=== PATIENT | female | born 1985 | race African-American/Black ===

== ENCOUNTER 2019-04-13 15:02 | Inpatient (IN) ==
[2019-04-13] MEDS ORDERED: PENICILLIN G POTASSIUM 6 MU in DEXTROSE 5% 250 ML IV STA (22:54)
[2019-04-13] MEDS ORDERED: miSOPROStol 50 MCG TAB PO ONE (22:54)
[2019-04-13] MEDS ORDERED: OXYTOCIN 30 UNITS/500 ML BAG IV PRN (22:54)
[2019-04-13 23:20] LABS: Hematocrit (blood only) 39.3 % (37-47); Hemoglobin 13.1 g/dL (12.0-16.0); Platelet Count 153 K/uL (130-400); RDW Coefficient of Variation 14.8 % (11.5-14.5); RDW Standard Deviation 45.3 fL (36.4-46.3); Red Blood Count 4.68 M/uL (4.2-5.4); White Blood Count 8.11 K/uL (4.8-10.8)
[2019-04-13 23:24] LABS: Mean Corpuscular Hgb Conc 33.3 g/dL (32-36)
[2019-04-13] MEDS: LACTATED RINGER'S 1,000 ML IV PRN (23:36)
[2019-04-14] MEDS ORDERED: miSOPROStol 50 MCG TAB PO STA (03:18)
[2019-04-14] MEDS: PENICILLIN G POTASSIUM 3 MU in DEXTROSE 5% 100 ML IV SCH ×6 (03:28→19:37)
[2019-04-14] MEDS ORDERED: CITRIC ACID/SODIUM CITRATE 15 ML UDC PO SCH (06:00)
[2019-04-14] MEDS ORDERED: miSOPROStol 50 MCG TAB PO ONE ×2 (07:28→12:01)
[2019-04-14] MEDS ORDERED: DINOPROSTONE 10 MG INSERT PV ONE (13:15)
[2019-04-14] MEDS ORDERED: ACETAMINOPHEN 325 MG TAB PO STA (16:57)
[2019-04-14] MEDS: LACTATED RINGER'S 1,000 ML IV PRN ×2 (17:19→18:25)
[2019-04-14] MEDS ORDERED: ePHEDrine sulfate 50 MG/ML AMP ONE (17:44)
[2019-04-14] MEDS ORDERED: BUPIVACAINE 0.25% 30 ML VIAL ONE (17:44)
[2019-04-14] MEDS ORDERED: fentaNYL citrate 100 MCG/2 ML VIAL ONE ×2 (17:44→21:40)
[2019-04-14] MEDS ORDERED: fentaNYL 2MCG/ML ROPIV 1.25MG/ML 100 ML BAG EPI ONE (17:45)
--- NOTE | 2019-04-14 19:15 | Anesthesiology Consultation ---
Date of Service April 14, 2019 Assessment & Plan (1) Encounter for pre-operative examination: Chart Review Chart Review: Patient NOT seen in Pre Admission Testing and Acceptable Risk for Labor Epidural Consults Requested none History Height/Weight Height: 5 ft 3 in Weight: 83.461 kg Allergies Allergy/AdvReac Type Severity Reaction Status Date / Time No Known Allergies Allergy Unverified 04/13/19 22:43 Medications Home Medications Medication Instructions Recorded Confirmed Last Taken vit no.[id number] 1 tab PO DAILY 04/13/19 04/13/19 04/11/19 [ Vitamin] Active Medications Generic Name Dose Route Start Last Admin Trade Name Freq PRN Reason Stop Dose Admin Lactated Ringer's 1,000 mls @ 125 mls/hr 04/13/19 22:54 04/14/19 18:46 Lr IV 04/15/19 22:53 125 mls/hr .Q8H PRN Infusion L&D Protocol Protocol Penicillin G Potassium 3 mu/ 106 mls @ 100 mls/hr 04/13/19 23:00 04/14/19 16:37 Dextrose IV 04/23/19 22:59 Infused Q4H PAVEL Infusion Protocol Social History Smoking Status: Never smoker Hx Alcohol Use: No Hx Substance Use: No Physical Exam Vital Signs Last Vital Signs Temp 38.1 C H 04/14/19 18:52 Pulse 120 H 04/14/19 19:07 Resp 18 04/14/19 17:52 BP 122/63 04/14/19 19:02 Pulse Ox 97 04/14/19 19:07 Testing Laboratory Results 04/13/19 23:02
[2019-04-14] MEDS ORDERED: DiphenhydrAMINE HCL 50 MG/ML VIAL IV PRN ×2 (19:18→22:27)
[2019-04-14] MEDS ORDERED: NALOXONE HCL 0.4 MG/1 ML VIAL/CARP IV PRN ×2 (19:18→22:27)
[2019-04-14] MEDS ORDERED: NALOXONE HCL 1 MG in SODIUM CHLORIDE 0.9% 1000ML 1,000 ML IV PRN ×2 (19:18→22:27)
[2019-04-14] MEDS ORDERED: fentaNYL 2MCG/ML ROPIV 1.25MG/ML 100 ML BAG EPI PRN (19:18)
[2019-04-14] MEDS ORDERED: ePHEDrine sulfate 50 MG/ML AMP IV PRN ×2 (19:18→22:27)
[2019-04-14] MEDS ORDERED: NALBUPHINE HCL INJ 10 MG/ML AMP IV PRN ×2 (19:18→22:27)
[2019-04-14] MEDS ORDERED: CITRIC ACID/SODIUM CITRATE 15 ML UDC ONE (20:21)
[2019-04-14] MEDS ORDERED: cefOXitin 2,000 MG/60 ML BAG IV ONE (20:30)
[2019-04-14] MEDS ORDERED: MoRPHine SULFATE PF 1 MG/ML 10 ML AMP/VIAL ONE (21:02)
--- NOTE | 2019-04-14 21:15 | History and Physical Report ---
DATE OF ADMISSION: 04/13/2019 CHIEF COMPLAINT: Post-term , meconium stained amniotic fluid, nonreassuring heart rate tracing. HISTORY OF PRESENT ILLNESS: The patient is a 33-year-old 1, para 0. Her due date 04/05/2019. This was dated with a first trimester ultrasound. course was complicated by an elevated glucose screen. The patient refused workup with a glucose tolerance test, started to see a diabetic specialist, said that she would prefer just to watch her diet and it should be noted that she did not spill any protein in the ensuing visits. She also screened positive for beta strep. She went over her due date and was brought in for induction. Induction was carried out with p.o. Cytotec. She received 3 doses of 50 mcg of p.o. Cytotec by about 4 hours and with that she finally dilated up to about 2 cm. She then was given a Cervidil tape. Her contractions began to become frequent and then she developed an elevated temperature despite being treated with penicillin G from her admission the night before. We eventually gave her epidural for pain control, removed the tape and her fever returned to normal; however, she began to develop persistent tachycardia. This was intermittently associated with type 2 decelerations. We ruptured her membrane surgically at about 5 cm, thick meconium was noted. She had frequent and strong contractions, failed to make any progress in dilatation or descent, is basically called for for nonreassuring heart rate tracing and failure to progress. PAST MEDICAL HISTORY: ALLERGIES: No known drug allergies. PAST SURGICAL HISTORY: No previous surgery. MEDICAL HISTORY: No history of rheumatic fever, heart disease, heart murmur, diabetes, tuberculosis. SOCIAL HISTORY: No smoking. No excessive alcohol intake. FAMILY HISTORY: Mom at age 75 of pneumonia and dementia. Dad is 90, in relatively good health. Five brothers and eight sisters, all in relatively good health. REVIEW OF SYSTEMS: HEAD: No symptoms of frequent or severe headaches. EYES: No symptoms of blurred vision, double vision. EARS: No symptoms of frequent ear infection, difficulty hearing. NOSE: No symptoms of frequent nosebleeds, difficulty breathing through her nose. THROAT: No symptoms of frequent or severe sore throats, difficulty swallowing. RESPIRATORY SYSTEM: No history of asthma, chest pain, shortness of breath. PHYSICAL EXAMINATION: GENERAL: Well-developed, well-nourished 33-year-old white female, alert, oriented x3 and cooperative, in no acute distress. HEART: Had regular rhythm. S1, S2 are normal. LUNGS: Clear to auscultation and percussion. ABDOMEN: Soft and nontender. She had a gravid uterus consistent with a term size fetus. No CVA tenderness. MUSCULOSKELETAL: No calf tenderness. PELVIC: Revealed a cervix to be 100% effaced, 5 cm, midposition had about a -3 station with thick meconium noted. IMPRESSIONS OF THIS CASE: Nonreassuring heart rate tracing, thick meconium, suspected macrosomia, cephalopelvic disproportion.
[2019-04-14] MEDS ORDERED: KETOROLAC 30 MG/ML VIAL ONE (21:42)
[2019-04-14] MEDS ORDERED: OXYTOCIN 10 UNITS/ML VIAL ONE (21:42)
[2019-04-14] MEDS ORDERED: HYDROCORTISONE ACETATE 25 MG SUPP PR PRN (22:06)
[2019-04-14] MEDS ORDERED: SENNA 8.6 MG TAB PO PRN (22:06)
[2019-04-14] MEDS ORDERED: SUPERCREAM 0.870% 15 GM JAR EXT PRN (22:06)
[2019-04-14] MEDS ORDERED: MAGNESIUM HYDROXIDE SUSP 30 ML UDC PO PRN (22:06)
[2019-04-14] MEDS ORDERED: DIPHTHERIA/TETANUS/PERTUSSIS 0.5 ML SYR/VIAL IM ONE (22:06)
[2019-04-14] MEDS ORDERED: BENZOCAINE 20% AER SPR 82.5 GM CAN EXT PRN (22:06)
[2019-04-14] MEDS ORDERED: PROMETHAZINE HCL 25 MG in SODIUM CHLORIDE 0.9% 50 ML IV PRN (22:06)
[2019-04-14] MEDS ORDERED: LACTATED RINGER'S 1,000 ML IV PRN (22:13)
--- NOTE | 2019-04-14 22:15 | Post Operative Brief Note ---
Immediate Post Op Note v1 Date of Surgery April 14, 2019 Pre & Post Diagnosis Operation Date: 04/14/19 20:10 Pre-Op Diagnosis: Non-reassuring heart rate Post-Op Diagnosis: Non-reassuring heart rate delivered live 8 lb infant Procedure Operation Date: 04/14/19 20:10 Actual Procedures p Section in LD(Bilateral) - Sushant Darnell MD Surgeon Sushant Darnell MD Ship Captain nurse Estimated Blood Loss 600 Findings Consistent with Post-Op Diagnosis Fluids 1200 ml Specimens placenta Drains Moore Catheter (Inserted by Zoraida Mike RN and output being monitored by anesthesia ) Anesthesia Type MAC Epidural Complications none Disposition Accompanied Patient To Recovery: No Disposition: Recovery Room
[2019-04-14] MEDS ORDERED: MoRPHine SULFATE 2 MG/ML CARP IV PRN (22:27)
[2019-04-14] MEDS ORDERED: ONDANSETRON INJ 2 MG/ML 2 ML VIAL IV PRN (22:27)
[2019-04-14] MEDS ORDERED: MoRPHine SULFATE PF 1 MG/ML 10 ML AMP/VIAL INT SPINAL ONE (22:27)
[2019-04-14] MEDS ORDERED: LACTATED RINGER'S 500 ML IV PRN (22:27)
[2019-04-14] MEDS ORDERED: NALOXONE HCL 0.08 MG in SYRINGE 1.8 ML IV PRN (22:27)
[2019-04-14] MEDS: OXYTOCIN 20 UNITS in LACTATED RINGER'S 1,000 ML IV SCH (22:28)
[2019-04-14] MEDS ORDERED: NO NARCOTICS OR SEDATIVES SCH (22:30)
[2019-04-14] MEDS ORDERED: SODIUM CHLORIDE 0.9% 1000ML 1,000 ML IV SCH (22:30)
[2019-04-14] MEDS ORDERED: DC INTRASPINAL MORPHINE SCH (22:30)
--- NOTE | 2019-04-14 22:31 | Anesthesiology Progress Note ---
Date of Service April 14, 2019 Anesthesia Post Procedure Vital Signs Vital Signs: Temp Pulse Resp BP Pulse Ox 04/14/19 22:26 85 99 04/14/19 22:21 95 H 97 04/14/19 22:20 105 H 115/76 04/14/19 20:49 100 H 98 04/14/19 20:48 122 H 137/80 04/14/19 20:44 106 H 97 04/14/19 20:39 97 H 96 04/14/19 20:34 98 H 96 04/14/19 20:33 100 H 133/71 04/14/19 20:29 91 H 96 04/14/19 20:28 114 H 92 04/14/19 20:24 90 96 04/14/19 20:19 105 H 127/68 96 04/14/19 20:14 101 H 92 04/14/19 20:12 110 H 97 04/14/19 20:07 36.8 C 104 H 97 04/14/19 20:04 83 129/62 04/14/19 20:02 80 95 04/14/19 19:57 82 95 04/14/19 19:52 82 96 04/14/19 19:48 78 121/58 L 04/14/19 19:47 80 96 04/14/19 19:45 80 94 04/14/19 19:42 84 96 04/14/19 19:37 90 97 04/14/19 19:32 95 H 96 04/14/19 19:27 81 96 04/14/19 19:22 86 96 04/14/19 19:19 83 122/59 L 04/14/19 19:17 86 97 04/14/19 19:12 98 H 96 04/14/19 19:07 120 H 97 04/14/19 19:02 100 H 122/63 98 04/14/19 19:00 106 H 120/60 04/14/19 18:58 99 H 121/58 L 04/14/19 18:57 112 H 97 04/14/19 18:56 106 H 122/57 L 04/14/19 18:54 99 H 120/57 L 04/14/19 18:52 38.1 C H 101 H 121/57 L 96 04/14/19 18:50 116 H 114/64 04/14/19 18:49 100 H 119/65 04/14/19 18:47 119 H 96 04/14/19 18:45 109 H 132/64 04/14/19 18:44 115 H 134/66 04/14/19 18:42 119 H 98 04/14/19 18:24 115 H 95 04/14/19 17:52 38.4 C H 18 04/14/19 17:50 38.4 C H 04/14/19 16:36 38.2 C H 16 04/14/19 16:33 107 H 106/68 04/14/19 12:13 36.5 C 18 04/14/19 12:12 63 128/76 04/14/19 10:03 64 120/71 04/14/19 07:16 36.7 C 18 04/14/19 07:12 79 131/87 04/14/19 03:11 36.7 C 68 18 112/57 L 04/13/19 22:46 91 H 145/89 H Pain Intensity Bilateral Lower Medial Abdomen: Pain Intensity: 0 Transfer of Care Handoff Completed per policy Notes Mental Status: alert / awake / arousable Patient Amnestic to Procedure: Yes Nausea / Vomiting: adequately controlled Pain: adequately controlled Airway Patency, RR, SpO2: stable & adequate BP & HR: stable & adequate Hydration State: stable & adequate Neuraxial Anesthesia: was administered and sensory block is resolving Anesthetic Complications: no major complications apparent and Pt Satisfied with anesthetic care Notes: epidural catheter remove. Tip intact.
--- NOTE | 2019-04-15 00:24 | Operative Report ---
DATE OF OPERATION: 04/14/2019 PROCEDURE: Primary low segment section. INDICATIONS FOR SURGERY: Nonreassuring heart rate tracing, macrosomia. PREOPERATIVE DIAGNOSES: Nonreassuring heart rate tracing, meconium, macrosomia. POSTOPERATIVE DIAGNOSES: Nonreassuring heart rate tracing, meconium, macrosomia, delivered live 8 pound male. SURGEON: Katy Darnell MD POLICE CAPTAIN SENIOR: litigation legal assistant. ESTIMATED BLOOD LOSS: 600 mL. ANESTHESIA: Epidural. OPERATIVE FINDINGS AND PROCEDURE: The patient was brought to the OR table, correctly identified by armband and conversation. Epidural was topped off. Moore catheter was inserted aseptically in the bladder, connected to gravity drainage. Compression stockings were applied. Lower abdomen was painted with an alcohol based sterilizing solution, draped in the usual sterile fashion. Pfannenstiel incision was made and carried down to the anterior fascia by sharp dissection. Hemostasis was secured by electrocauterization. Fascia was incised transversely, from the underlying muscle by blunt and sharp dissection. The peritoneum was carefully raised and entered. The bowel came out of the lower uterine segment. Incision was packed off with 2 packs that were tacked. Then the lower uterine segment was exposed. Incision was made above the vesicouterine fold. Bladder was undermined bluntly and pushed out of the operative field. Lower uterine segment was scored with a knife and then entered with scissors. Meconium stained fluid was noted at this time. Vectis retractor was applied to the head with fundal pressure, the infant was delivered. Infant breathed and cried spontaneously, was attended to by the veterans adviser who was present and scrubbed at the time of delivery. Cord was clamped and cut. Cord blood was taken. Placenta was removed manually. The shiny side of the placenta was cultured with 2 cultures and sent to microbiology. Uterus, tubes, and ovaries were brought out through the incision. Uterine cavity was cleansed with a clean sponge. The angles of the myometrial defect were grasped with ring forceps. Chromic gut suture was used to approximate the myometrial layer with continuous interlocking suture of heavy chromic, then the fascial layer was approximated over this with a continuous layer of heavy Vicryl. Following this, about 4 interrupted sutures of heavy Vicryl were used to bolster the incision and to finish the hemostatic process. Peritoneal edges were then restored with a continuous 3-0 chromic, which restored the integrity of the vesicouterine fold. A small pedunculated cyst of the right tube base was cauterized, electrocauterization sent for pathological evaluation. The pelvis was cleansed of all blood clots and debris. Careful anatomical approximation of the anterior abdominal wall was placed. ____ was used to hold the bowel and then the peritoneum was closed with a mattress suture of chromic catgut. Recti muscles were approximated with interrupted [id number] suture of chromic catgut. The fascia was closed with continuous interlocking suture of Vicryl on each side, tied in the midline. SubQ was approximated with a running plain. The skin edges were approximated with staple clips. I attest to the content of the Intraoperative Record and any orders documented therein. Any exception s are noted below.
[2019-04-15] MEDS: OXYTOCIN 20 UNITS in LACTATED RINGER'S 1,000 ML IV SCH ×2 (05:59→13:53)
[2019-04-15 07:18] LABS: Basophils # (auto) 0.01 K/uL (0-0.2); Basophils % (auto) 0.1 %; Eosinophils # (auto) 0.02 K/uL (0-0.5); Eosinophils % (auto) 0.2 %; Hematocrit (blood only) 32.8 % (37-47); Hemoglobin 10.8 g/dL (12.0-16.0); Immature Granulocytes # (auto) 0.07 K/uL (0.00-0.02); Immature Granulocytes % (auto) 0.6 %; Lymphocytes % (auto) 21.8 %; Mean Corpuscular Hgb Conc 32.9 g/dL (32-36); Mean Corpuscular Volume 84.1 fL (80-100); Mean Platelet Volume 12.6 fL (7.4-10.4); Monocytes # (auto) 0.98 K/uL (0.11-0.59); Monocytes % (auto) 7.9 %; Neutrophils # (auto) 8.59 K/uL (1.4-6.5); Neutrophils % (auto) 69.4 %; Platelet Count 133 K/uL (130-400); RDW Coefficient of Variation 14.8 % (11.5-14.5); RDW Standard Deviation 45.9 fL (36.4-46.3); White Blood Count 12.37 K/uL (4.8-10.8)
[2019-04-15] MEDS: KETOROLAC 30 MG/ML VIAL IV PRN ×2 (08:43→13:49)
[2019-04-15] MEDS: DOCUSATE SODIUM 100 MG CAP PO SCH ×2 (08:44→20:56)
[2019-04-15] MEDS: SIMETHICONE 80 MG CHEW PO SCH ×4 (08:45→20:54)
[2019-04-15] MEDS: PRENATAL VITAMIN 1 TAB PO SCH (08:45)
[2019-04-15] MEDS: FERROUS SULFATE 325 MG TAB PO SCH (08:45)
--- NOTE | 2019-04-15 09:20 | Anesthesiology Progress Note ---
Date of Service April 15, 2019 Anesthesia Post Procedure Vital Signs Vital Signs: Temp Pulse Resp BP Pulse Ox 04/15/19 06:00 16 97 04/15/19 05:00 16 97 04/15/19 04:00 18 95 04/15/19 03:45 37.2 C 97 H 16 123/69 94 04/15/19 02:00 18 96 04/15/19 01:15 37.2 C 89 18 130/72 95 04/15/19 00:31 86 96 04/15/19 00:26 97 H 95 04/15/19 00:21 89 95 04/15/19 00:20 90 18 123/58 L 04/15/19 00:16 92 H 96 04/15/19 00:11 93 H 96 04/15/19 00:06 90 96 04/15/19 00:01 95 H 96 04/14/19 23:56 85 95 04/14/19 23:51 92 H 95 04/14/19 23:50 82 18 133/71 04/14/19 23:46 85 96 04/14/19 23:41 84 97 04/14/19 23:36 86 96 04/14/19 23:31 80 96 04/14/19 23:30 18 04/14/19 23:26 84 96 04/14/19 23:21 82 99 04/14/19 23:20 85 18 134/63 04/14/19 23:16 87 97 04/14/19 23:11 83 97 04/14/19 23:10 80 18 146/69 H 04/14/19 23:06 79 96 04/14/19 23:01 82 95 04/14/19 23:00 78 18 139/64 04/14/19 22:56 85 96 04/14/19 22:51 76 98 04/14/19 22:50 78 18 139/84 04/14/19 22:46 80 97 04/14/19 22:41 77 97 04/14/19 22:40 18 04/14/19 22:38 94 H 92 04/14/19 22:36 93 H 99 04/14/19 22:31 89 98 04/14/19 22:30 74 18 130/71 04/14/19 22:26 85 99 04/14/19 22:21 95 H 97 04/14/19 22:20 36.7 C 105 H 18 115/76 04/14/19 20:49 100 H 98 04/14/19 20:48 122 H 137/80 04/14/19 20:44 106 H 97 04/14/19 20:39 97 H 96 04/14/19 20:34 98 H 96 04/14/19 20:33 100 H 133/71 04/14/19 20:29 91 H 96 04/14/19 20:28 114 H 92 04/14/19 20:24 90 96 04/14/19 20:19 105 H 127/68 96 04/14/19 20:14 101 H 92 04/14/19 20:12 110 H 97 04/14/19 20:07 36.8 C 104 H 97 04/14/19 20:04 83 129/62 04/14/19 20:02 80 95 04/14/19 19:57 82 95 04/14/19 19:52 82 96 04/14/19 19:48 78 121/58 L 04/14/19 19:47 80 96 04/14/19 19:45 80 94 04/14/19 19:42 84 96 04/14/19 19:37 90 97 04/14/19 19:32 95 H 96 04/14/19 19:27 81 96 04/14/19 19:22 86 96 04/14/19 19:19 83 122/59 L 04/14/19 19:17 86 97 04/14/19 19:12 98 H 96 04/14/19 19:07 120 H 97 04/14/19 19:02 100 H 122/63 98 04/14/19 19:00 106 H 120/60 04/14/19 18:58 99 H 121/58 L 04/14/19 18:57 112 H 97 04/14/19 18:56 106 H 122/57 L 04/14/19 18:54 99 H 120/57 L 04/14/19 18:52 38.1 C H 101 H 121/57 L 96 04/14/19 18:50 116 H 114/64 04/14/19 18:49 100 H 119/65 04/14/19 18:47 119 H 96 04/14/19 18:45 109 H 132/64 04/14/19 18:44 115 H 134/66 04/14/19 18:42 119 H 98 04/14/19 18:24 115 H 95 04/14/19 17:52 38.4 C H 18 04/14/19 17:50 38.4 C H 04/14/19 16:36 38.2 C H 16 04/14/19 16:33 107 H 106/68 04/14/19 12:13 36.5 C 18 04/14/19 12:12 63 128/76 04/14/19 10:03 64 120/71 Pain Intensity Bilateral Lower Medial Abdomen: Pain Intensity: 1 Notes Mental Status: alert / awake / arousable and participated in evaluation Patient Amnestic to Procedure: No Nausea / Vomiting: adequately controlled Pain: adequately controlled Airway Patency, RR, SpO2: stable & adequate BP & HR: stable & adequate Hydration State: stable & adequate Neuraxial Anesthesia: was administered and sensory block resolved Anesthetic Complications: no major complications apparent and Pt Satisfied with anesthetic care
[2019-04-15] MEDS ORDERED: MEPERIDINE HCL 50 MG/ML CARP IV PRN (16:28)
[2019-04-15] MEDS ORDERED: ZOLPIDEM TARTRATE 5 MG TAB PO PRN (16:28)
[2019-04-15] MEDS ORDERED: ONDANSETRON INJ 2 MG/ML 2 ML VIAL IV PRN (16:28)
[2019-04-15] MEDS ORDERED: KETOROLAC 30 MG/ML VIAL IV PRN (16:28)
[2019-04-15] MEDS ORDERED: DiphenhydrAMINE HCL 50 MG/ML VIAL IV PRN (16:28)
--- NOTE | 2019-04-15 19:26 | Obstetrical Progress Note ---
Date of Service April 15, 2019 Physical Exam Physical Exam: abdomen soft and non tender bowel sounds hypoactive vaginal bleeding scant 10.8 no calf tenderness ambulating well Results & Data Vital Signs (Past 12 Hours) Vital Signs Temp Pulse Resp BP Pulse Ox 04/15/19 16:35 18 98 04/15/19 16:00 36.9 C 96 H 18 125/72 98 04/15/19 15:30 16 97 04/15/19 14:26 16 97 04/15/19 13:28 18 98 04/15/19 12:29 18 99 04/15/19 11:45 37 C 89 18 114/64 98 04/15/19 11:28 18 99 04/15/19 10:30 16 97 04/15/19 09:30 18 99 04/15/19 08:15 18 99 04/15/19 08:00 37.1 C 98 H 18 148/82 H 99
[2019-04-15] MEDS: IBUPROFEN 600 MG TAB PO PRN (19:30)
[2019-04-15] MEDS: OXYCODONE/ACETAMINOPHEN 5mg/325mg TAB PO PRN (19:31)
[2019-04-15] MEDS ORDERED: BISACODYL 5 MG TABEC PO SCH (20:00)
[2019-04-16] MEDS: IBUPROFEN 600 MG TAB PO PRN ×6 (00:01→23:32)
[2019-04-16] MEDS: OXYCODONE/ACETAMINOPHEN 5mg/325mg TAB PO PRN ×6 (00:02→23:33)
[2019-04-16] MEDS: DOCUSATE SODIUM 100 MG CAP PO SCH ×2 (07:48→21:59)
[2019-04-16] MEDS: FERROUS SULFATE 325 MG TAB PO SCH (07:48)
[2019-04-16] MEDS: PRENATAL VITAMIN 1 TAB PO SCH (07:48)
[2019-04-16] MEDS: SIMETHICONE 80 MG CHEW PO SCH ×4 (07:48→21:59)
[2019-04-16 09:05] LABS: Hematocrit (blood only) 34.8 % (37-47); Hemoglobin 11.5 g/dL (12.0-16.0)
--- NOTE | 2019-04-16 11:00 | Obstetrical Progress Note ---
Date of Service April 16, 2019 Physical Exam Physical Exam: abdomen soft and non tender bowel sounds present vaginal bleeding scant to moderate no calf tenderness ambulating well Results & Data Vital Signs (Past 12 Hours) Vital Signs Temp Pulse Resp BP Pulse Ox 04/16/19 07:50 36.6 C 71 18 127/81 04/16/19 00:00 36.9 C 104 H 18 119/67 96
[2019-04-16] MEDS ORDERED: BISACODYL 10 MG SUPP PR PRN (22:06)
[2019-04-17] MEDS: OXYCODONE/ACETAMINOPHEN 5mg/325mg TAB PO PRN ×3 (03:47→12:47)
[2019-04-17] MEDS: IBUPROFEN 600 MG TAB PO PRN ×3 (03:48→12:46)
--- NOTE | 2019-04-17 08:20 | Obstetrical Progress Note ---
Date of Service April 17, 2019 Physical Exam Physical Exam: abdomen soft and non tender incision is clean and dry vaginal bleeding scant to moderate no calf tenderness ambulating well cultures negative Results & Data Vital Signs (Past 12 Hours) Vital Signs Temp Pulse Resp BP Pulse Ox 04/17/19 07:30 36.8 C 80 16 116/75 98 04/16/19 23:00 36.5 C 99 H 18 138/77 98
[2019-04-17] MEDS: DOCUSATE SODIUM 100 MG CAP PO SCH (08:24)
[2019-04-17] MEDS: PRENATAL VITAMIN 1 TAB PO SCH (08:24)
[2019-04-17] MEDS: SIMETHICONE 80 MG CHEW PO SCH ×2 (08:25→12:47)
--- NOTE | 2019-04-17 08:54 | Discharge Summary ---
HOSPITAL COURSE: She was brought in for induction of labor at about 40 weeks and 8 days. She was given several p.o. Cytotec tablets approximately 3-4 consecutively. She then established good labor pattern. Eventually, we went from the Cytotec tablets to tape. She requested and received epidural for pain control and then we ruptured her membranes. At the time of rupture, her fluid was grossly meconium stained. Basically, the patient had started developing nonreassuring heart rate tracing along with an elevated temperature, at times over 101. It should be noted that she had been started early in her induction on penicillin G for prophylaxis against a vaginal beta strep culture positive for strep and had had multiple doses, gave her some Tylenol; however, her temperature remained elevated. Her heart rate tracing began to show persistent tachycardia with variability where she started to develop intermittent type 2 decelerations. At this point, she was started on Pitocin. Pitocin had to be turned back and she had an arrest of labor at about 5 cm for a significant period of time despite having a maximum stimulation and also she began to develop nonreassuring heart rate tracing. The head was not in the mid pelvis. It was diagnosed as an inlet dystocia. She was taken to the OR where she underwent primary low segment section. Preoperative hemoglobin was 13.1, hematocrit 39.3. At the time of discharge, her hemoglobin was 11.5, hematocrit 34.8. At the time of discharge, she was ambulating well, eating well. Her incision was clean and dry. She was given prescriptions for Percocet and Motrin, during her hospitalization, the baby had to be transferred to [facility] because it had vomiting. At the time of discharge, the child was doing well and the mother was anxious to go see the and also she was ready to be taken at home. She was also told to come back in the office in a week for removal of the luh.
[2019-04-17] MEDS: FERROUS SULFATE 325 MG TAB PO SCH (10:39)
== END 2019-04-17 13:28 | disposition home or self-care (01) | DRG 787 ==
LOC: 4S1 22:04 → 4S2 04-15 00:45
DX: Z3A.41 41 weeks gestation of pregnancy; Z37.0 Single live birth; O76 Abnormality in fetal heart rate and rhythm complicating labor and delivery; O99.824 Streptococcus B carrier state complicating childbirth; O77.0 Labor and delivery complicated by meconium in amniotic fluid; O33.5XX0 Maternal care for disproportion due to unusually large fetus, not applicable or unspecified; N83.8 Other noninflammatory disorders of ovary, fallopian tube and broad ligament; O48.0 Post-term pregnancy; O75.2 Pyrexia during labor, not elsewhere classified; O34.83 Maternal care for other abnormalities of pelvic organs, third trimester